=== PATIENT | female | born 1955 | race Caucasian/White ===

== ENCOUNTER → 2021-12-20 | Outpatient (CLI) | payer OTHER | END | disposition home or self-care (01) | LOC: COVID19 15:01 | PROVIDERS: ATTEND Internal Medicine | DX: Z20.822 Contact with and (suspected) exposure to COVID-19 (principal) ==

== ENCOUNTER → 2024-05-04 | Outpatient (CLI) | payer OTHER | END | disposition home or self-care (01) | LOC: RAD 09:48 | PROVIDERS: ATTEND Physician Assistant Medical | DX: M19.011 Primary osteoarthritis, right shoulder (principal); G89.29 Other chronic pain ==

== ENCOUNTER 2025-08-28 13:42 | Emergency (ER) | payer OTHER ==
[~2025-08-28] VITALS: Ht 162.5 cm; Wt 76.2 kg
[2025-08-28] MEDS ORDERED: diazePAM 10 MG/2 ML SYR IV ONE ×2 (14:05→15:15)
[2025-08-28 14:17] LABS: BASO # 0.1 10*3/uL (0.0-0.1); BASO % 0.8 % (0.0-1.0); EOS # 0.2 10*3/uL (0.0-0.4); EOS % 1.7 % (1.0-4.0); MEAN CELL VOLUME 93.3 fl (81.0-99.0); MEAN CORPUSCULAR HGB 29.8 pg (27.0-31.0); MEAN PLATELET VOLUME 10.2 fl (9.6-12.3); MONO # 0.9 10*3/uL (0.1-1.0); MONO % 7.6 % (3.0-9.0); NEUT # 7.7 10*3/uL (2.3-7.9); NEUT % 65.4 % (47.0-73.0); NUCLEATED RED BLOOD CELL 0.0 % (0.0-0.0); NUCLEATED RED BLOOD CELL 0.0 10*3/uL (0.0-0.0); PLATELET COUNT AUTOMATED 247 10*3/uL (130-400); RED CELL DISTRI WIDTH 12.9 % (0-14.5)
[2025-08-28 14:42] LABS: BUN 21 mg/dl (9-23); CPK 86 U/L (34-171); SGPT/ALT 22 U/L (5-49)
[2025-08-28 15:12] LABS: BILIRUBIN Negative (Negative); BLOOD Negative (Negative); CLARITY Clear (Clear); COLOR Yellow (Yellow); KETONE Negative (Negative); LEUKO ESTERASE 1+ (Negative); NITRITE Negative (Negative); PH 6.5 (4.5-8.0); SPECIFIC GRAVITY 1.015 (1.001-1.030); UROBILINOGEN 0.2 E.U./dl (0.0-1.0)
[2025-08-28] MEDS ORDERED: VALIUM10 MG PO (15:19)
[2025-08-28] MEDS ORDERED: WELLBUTRIN XL150 MG PO (15:19)
[2025-08-28 15:36] LABS: BACTERIA TRACE; RBC 0-2 rbc/hpf (0-2)
== END 2025-08-28 15:40 | disposition home or self-care (01) ==
LOC: ED 13:42
PROVIDERS: Emergency Medicine
DX: F41.9 Anxiety disorder, unspecified (principal); R06.00 Dyspnea, unspecified; F32.A Depression, unspecified; Z88.8 Allergy status to other drugs, medicaments and biological substances